=== PATIENT | female | born 1950 ===

== ENCOUNTER 2016-10-01 09:59 | Emergency (ER) | payer SELFPAY ==
--- NOTE | 2016-10-01 11:18 | UC ---
FLU HPI - HPI Summary HPI Summary: Aches, fever, cough, nausea since last night. Partner had similar symptoms starting 6 days ago, neg CXR and bloodwork suggesting viral process. Here to see if she has the flu, possibly interested in tamiflu if so. Denies trouble breathing. - History of Current Complaint Hx Obtained From: Patient ?: No Onset/Duration: Sudden Onset, Lasting Hours Severity Currently: Moderate Severity Initially: Moderate Associated Signs & Symptoms: Positive: Fever, Cough, Nasal Congestion, Headache <Anali Mares - Last Filed: 10/01/16 12:05> <Sherry Haq - Last Filed: 10/01/16 13:10> - History of Current Complaint Chief Complaint: UCGeneralIllness Stated Complaint: COUGH Time Seen by Provider: 10/01/16 10:57 - Allergy/Home Medications Allergies/Adverse Reactions: Allergies Allergy/AdvReac Type Severity Reaction Status Date / Time Sulfa Antibiotics Allergy Rash And Verified 10/01/16 10:36 Itching Home Medications: Home Medications Olmesartan Medoxomil [Benicar] 40 mg PO DAILY 10/01/16 [History Confirmed ] Omeprazole CAP* [Prilosec CAP* 20 MG] 20 mg PO DAILY 10/01/16 [History Confirmed 10/01/16] PMH/Surg Hx/FS Hx/Imm Hx Endocrine History Of: Denies: Diabetes, Thyroid Disease Cardiovascular History Of: Reports: Hypertension Denies: Cardiac Disorders Respiratory History Of: Denies: COPD, Asthma GI/ History Of: Denies: Ulcer - Surgical History Surgical History: Yes Surgery Procedure, Year, and Place: Foot surgery, hysterectomy - Family History Known Family History: Positive: Hypertension - Social History Lives: With Family Alcohol Use: Rare Substance Use Type: None Smoking Status (MU): Never Smoked Tobacco <Anali Mares - Last Filed: 10/01/16 12:05> Review of Systems Constitutional: Fever, Chills, Fatigue Skin: Negative Eyes: Negative ENT: Sore Throat, Nasal Discharge Respiratory: Cough Cardiovascular: Negative Gastrointestinal: Negative Genitourinary: Negative Motor: Negative Neurovascular: Negative Musculoskeletal: Negative Neurological: Negative Psychological: Negative All Other Systems Reviewed And Are Negative: Yes <Anali Mares - Last Filed: 10/01/16 12:05> Physical Exam Triage Information Reviewed: Yes Appearance: No Pain Distress, Pain Distress - lying on exam table, grimacing with movement. Vital Signs: Initial Vital Signs Temp 98.8 F 10/01/16 10:23 Pulse 93 10/01/16 10:23 Resp 18 10/01/16 10:23 BP 136/78 10/01/16 10:23 Pulse Ox 97 10/01/16 10:23 Vital Signs Reviewed: Yes Eye Exam: Normal Eyes: Positive: Conjunctiva Clear ENT: Positive: Hearing grossly normal, Pharynx normal, Nasal congestion, TMs normal. Negative: Tonsillar swelling, Tonsillar exudate Neck exam: Normal Neck: Positive: Supple, Nontender Respiratory: Positive: Normal breath sounds, No respiratory distress, Crackles - minimal, RLL Cardiovascular Exam: Normal Cardiovascular: Positive: RRR, No Murmur Abdominal Exam: Normal Abdomen Description: Positive: Nontender, No Organomegaly, Soft Musculoskeletal Exam: Normal Musculoskeletal: Positive: Strength Intact, ROM Intact Neurological Exam: Normal Neurological: Positive: Alert Psychological Exam: Normal Skin Exam: Normal <Anali Mares - Last Filed: 10/01/16 12:05> Vital Signs: Initial Vital Signs Temp 98.8 F 10/01/16 10:23 Pulse 93 10/01/16 10:23 Resp 18 10/01/16 10:23 BP 136/78 10/01/16 10:23 Pulse Ox 97 10/01/16 10:23 <Sherry Haq - Last Filed: 10/01/16 13:10> Flu Course/Dx - Course Course Of Treatment: Close household contact with similar symptoms (which also started yesterday) had positive swab for flu B at same visit. - Differential Dx/Diagnosis Provider Diagnoses: Influenza <Anali Mares - Last Filed: 10/01/16 12:05> Discharge <Anali Mares - Last Filed: 10/01/16 12:05> <Sherry Haq - Last Filed: 10/01/16 13:10> - Discharge Plan Condition: Stable Disposition: HOME Prescriptions: Acetaminop/Codeine 30 MG TAB* [Tylenol/Codeine 30 MG TAB*] 1 - 2 tab PO BEDTIME PRN #10 tab MDD 2 PRN Reason: Cough Oseltamivir CAP* [Tamiflu CAP*] 75 mg PO BID #10 cap Patient Education Materials: Influenza (ED) Referrals: No Primary Care Phys,NOPCP [Primary Care Provider] - Additional Instructions: Call or return if you develop increasing fever, shortness of breath, chest pain , bloody sputum, or otherwise worsen. If you have not improved at all after several days, contact your primary care physician or return here. Attestation Statement User Type: Provider - I was available for consult. This patient was seen by the [facility]. The patient was not presented to, seen by, or examined by me. <Sherry Haq - Last Filed: 10/01/16 13:10>
== END 2016-10-01 12:15 | disposition home or self-care (01) ==
LOC: UCEAST 09:59
DX: J11.1 Influenza due to unidentified influenza virus with other respiratory manifestations (principal)
CPT/HCPCS: 87502; 99202; G0463